=== PATIENT | male | born 1980 | race Caucasian/White ===

== ENCOUNTER 2021-11-05 08:31 | Inpatient (IN) | payer OTHER ==
[~2021-11-05] VITALS: Ht 188 cm; Wt 100.0 kg
[2021-11-05] MEDS ORDERED: HALOPERIDOL LACTATE 5 MG/ML VIAL IM ONE (09:00)
[2021-11-05] MEDS ORDERED: LORazepam 2 MG/ML VIAL IM ONE (09:00)
[2021-11-05] MEDS ORDERED: DiphenhydrAMINE HCL 50 MG/ML VIAL IM ONE (09:00)
[2021-11-05 09:06] LABS: BASOPHILS % (AUTO) 0.3 % (0.0-2.0); EOSINOPHILS % (AUTO) 0.2 % (1.0-6.0); HEMATOCRIT 47.2 % (41-53); HEMOGLOBIN 16.6 g/dL (13.5-17.5); LYMPHOCYTES # (AUTO) 1.1 K/uL (1.0-4.8); LYMPHOCYTES % (AUTO) 14.5 % (22.0-44.0); MEAN CORPUSCULAR HGB CONC 35.2 G/dL (31.0-37.0); MEAN CORPUSCULAR VOLUME 88 fL (80-100); MONOCYTES # (AUTO) 0.3 K/uL (0.1-1.0); MONOCYTES % (AUTO) 4.5 % (2.0-9.0); NEUTROPHILS # (AUTO) 6.3 K/uL (1.8-7.7); NEUTROPHILS % (AUTO) 80.5 % (40.0-70.0); PLATELET COUNT (AUTO) 247 K/uL (150-450); RED BLOOD CELL COUNT(AUTO) 5.36 MIL/uL (4.50-5.90); RED CELL DISTRIBUTION WIDTH 12.4 % (11.5-14.5)
[2021-11-05 09:27] LABS: ANION GAP 11 mmol/L (8-16); CALCIUM, TOTAL 9.4 mg/dL (8.8-10.5); CARBON DIOXIDE 24 mmol/L (22-29); CHLORIDE 100 mmol/L (98-107); CREATININE 0.96 mg/dL (0.60-1.30); GLOMERULAR FILTR. RATE CALC > 60 mL/min (>60); GLUCOSE,RANDOM 105 mg/dL (70-110); SODIUM SERUM 135 mmol/L (136-145); UREA NITROGEN, BLOOD 18 mg/dL (7-18)
[2021-11-05 09:33] LABS: ALANINE AMINOTRANSFERASE 26 U/L (12-78); ALKALINE PHOSPHATASE 80 U/L (46-116); ASPARTATE AMINOTRANSFERASE 17 U/L (15-37); BILIRUBIN,TOTAL 0.7 mg/dL (0.1-1.0); LIPASE 38 U/L (73-393); TOTAL PROTEIN, SERUM 7.6 g/dL (6.4-8.2)
[2021-11-05 09:52] LABS: COVID AG,FIA SOURCE NASOPHARYNGEAL
[2021-11-05] MEDS ORDERED: LOPERAMIDE HCL 2 MG CAPSULE PO PRN (13:45)
[2021-11-05] MEDS ORDERED: SODIUM CHLORIDE 0.9% 1,000 ML IV ONE (13:45)
[2021-11-05] MEDS ORDERED: METOCLOPRAMIDE HCL 5 MG/ML 2 ML VIAL IVP PRN (13:45)
[2021-11-05 14:05] VITALS: BP 144/92
[2021-11-05 19:42] VITALS: BP 141/76
[2021-11-05] MEDS: TEMAZEPAM 15 MG CAPSULE PO SCH (21:03)
[2021-11-05] MEDS: POLYETHYLENE GLYCOL 3350 17 GM PACKET PO SCH (21:03)
[2021-11-05] MEDS: LORazepam 2 MG/ML VIAL IVP PRN (21:03)
[2021-11-06] MEDS ORDERED: HALOPERIDOL LACTATE 5 MG/ML VIAL IM ONE (01:45)
[2021-11-06 04:14] VITALS: BP 147/80
[2021-11-06 05:31] LABS: APPEARANCE,URINE CLEAR (CLEAR); BILIRUBIN,URINE NEGATIVE (NEGATIVE); GLUCOSE, URINE (UA) NEGATIVE (NEGATIVE); LEUKOCYTE ESTERASE ,URINE MODERATE (NEGATIVE); NITRATE,URINE NEGATIVE (NEGATIVE); OCCULT BLOOD,URINE NEGATIVE (NEGATIVE); PROTEIN,URINE 30-70 mg/dL (NEGATIVE); SPECIFIC GRAVITIY, URINE 1.031 (1.003-1.030); UROBILINOGEN,URINE <=1.0 mg/dL (<=1.0)
[2021-11-06 05:37] LABS: AMPHET/METH SCREEN,URINE POSITIVE (NEGATIVE); BARBITURATE SCREEN, URINE NEGATIVE (NEGATIVE); BENZODIAZEPINES SCREEN,URINE NEGATIVE (NEGATIVE); CANNABINOID SCREEN,URINE NEGATIVE (NEGATIVE); COCAINE SCREEN,URINE NEGATIVE (NEGATIVE); METHADONE SCREEN, URINE NEGATIVE (NEGATIVE); OPIATE SCREEN,URINE NEGATIVE (NEGATIVE)
[2021-11-06 05:39] LABS: PHENCYCLIDINE SCREEN,URINE NEGATIVE (NEGATIVE)
[2021-11-06 05:56] LABS: BACTERIA,URINE None Seen /HPF (None Seen); RBC,URINE None Seen /HPF (0-2); SQUAMOUS EPITHELIAL CELL,UR Few /LPF (None Seen); WBC,URINE 26-50 /HPF (0-5)
[2021-11-06 07:42] VITALS: BP 142/80
[2021-11-06] MEDS: POLYETHYLENE GLYCOL 3350 17 GM PACKET PO SCH ×3 (09:00→20:06)
[2021-11-06] MEDS ORDERED: TAMSULOSIN HCL 0.4 MG CAPSULE PO SCH (09:00)
[2021-11-06] MEDS: TAMSULOSIN HCL 0.4 MG CAPSULE PO SCH ×2 (09:47→20:06)
[2021-11-06] MEDS: LORazepam 2 MG/ML VIAL IVP PRN (10:39)
[2021-11-06 11:30] VITALS: BP 140/84
[2021-11-06 15:53] VITALS: BP 138/82
[2021-11-06 19:48] VITALS: BP 152/81
[2021-11-06] MEDS: TEMAZEPAM 15 MG CAPSULE PO SCH (20:06)
[2021-11-07] MEDS: LORazepam 2 MG/ML VIAL IM PRN ×2 (03:16→13:39)
[2021-11-07 05:09] VITALS: BP 152/81
[2021-11-07] MEDS ORDERED: LORazepam 2 MG/ML VIAL IM PRN (05:45)
[2021-11-07 07:54] VITALS: BP 146/76
[2021-11-07] MEDS: POLYETHYLENE GLYCOL 3350 17 GM PACKET PO SCH ×2 (09:00→21:00)
[2021-11-07] MEDS: TAMSULOSIN HCL 0.4 MG CAPSULE PO SCH ×2 (10:28→21:00)
[2021-11-07 11:47] VITALS: BP 126/91
[2021-11-07] MEDS: DICYCLOMINE HCL 10 MG CAPSULE PO PRN (12:33)
[2021-11-07 16:54] VITALS: BP 154/91
[2021-11-07 20:45] VITALS: BP 144/89
[2021-11-07] MEDS: TEMAZEPAM 15 MG CAPSULE PO SCH (21:00)
[2021-11-08 00:06] VITALS: BP 138/81
[2021-11-08 04:17] VITALS: BP 129/71
[2021-11-08] MEDS: LORazepam 2 MG/ML VIAL IM PRN ×2 (04:33→13:29)
[2021-11-08 08:03] VITALS: BP 140/81
[2021-11-08] MEDS: POLYETHYLENE GLYCOL 3350 17 GM PACKET PO SCH ×2 (08:57→21:00)
[2021-11-08] MEDS: TAMSULOSIN HCL 0.4 MG CAPSULE PO SCH ×2 (08:57→20:54)
[2021-11-08] MEDS: ACETAMINOPHEN/CODEINE 300-15 MG TABLET PO PRN (11:44)
[2021-11-08 16:22] VITALS: BP 133/78
[2021-11-08] MEDS: TEMAZEPAM 15 MG CAPSULE PO SCH (20:54)
[2021-11-08 20:59] VITALS: BP 139/81
[2021-11-09] VITALS (7 sets, daily range): BP systolic 125–142; BP diastolic 66–80
[2021-11-09] MEDS: TAMSULOSIN HCL 0.4 MG CAPSULE PO SCH ×2 (08:08→21:00)
[2021-11-09] MEDS: ACETAMINOPHEN/CODEINE 300-15 MG TABLET PO PRN (08:09)
[2021-11-09] MEDS: POLYETHYLENE GLYCOL 3350 17 GM PACKET PO SCH ×2 (08:09→21:00)
[2021-11-09] MEDS ORDERED: IBUPROFEN 800 MG TABLET PO ONE (10:00)
[2021-11-09] MEDS: LORazepam 2 MG/ML VIAL IM PRN (10:06)
[2021-11-09] MEDS: ACETAMINOPHEN 325 MG TABLET PO PRN (16:22)
[2021-11-09] MEDS ORDERED: LORazepam 2 MG/ML VIAL IM ONE (19:15)
[2021-11-09] MEDS: TEMAZEPAM 15 MG CAPSULE PO SCH (21:00)
[2021-11-10] VITALS (9 sets, daily range): BP systolic 115–136; BP diastolic 68–86
[2021-11-10] MEDS: ACETAMINOPHEN 325 MG TABLET PO PRN ×3 (07:06→19:56)
[2021-11-10] MEDS: POLYETHYLENE GLYCOL 3350 17 GM PACKET PO SCH ×2 (09:00→19:59)
[2021-11-10] MEDS: TAMSULOSIN HCL 0.4 MG CAPSULE PO SCH ×2 (09:06→19:56)
[2021-11-10] MEDS: LORazepam 2 MG/ML VIAL IM PRN (09:06)
[2021-11-10] MEDS: IBUPROFEN 800 MG TABLET PO PRN (13:55)
[2021-11-10] MEDS: TEMAZEPAM 15 MG CAPSULE PO SCH (19:56)
[2021-11-11 04:31] VITALS: BP 138/77
[2021-11-11] MEDS: IBUPROFEN 800 MG TABLET PO PRN (06:32)
[2021-11-11 07:24] VITALS: BP 125/66
[2021-11-11] MEDS: POLYETHYLENE GLYCOL 3350 17 GM PACKET PO SCH (08:27)
[2021-11-11] MEDS: DICYCLOMINE HCL 10 MG CAPSULE PO PRN (08:28)
[2021-11-11] MEDS: TAMSULOSIN HCL 0.4 MG CAPSULE PO SCH (08:28)
== END 2021-11-11 14:15 | DRG 897 ==
LOC: EMS 08:31 → 6S 12:34
PROVIDERS: ADMIT Internal Medicine; ATTEND Internal Medicine
DX: F11.13 Opioid abuse with withdrawal (principal); F15.20 Other stimulant dependence, uncomplicated; Z20.822 Contact with and (suspected) exposure to COVID-19; K59.00 Constipation, unspecified
CPT/HCPCS: 70450; 74019; 80053; 81001; 83690; 85025; 87086; 99285; G0480; J1200; J1630; J2060; J7030